=== PATIENT | female | born 1980 | race African-American/Black ===

== ENCOUNTER 2019-05-18 10:40 | Emergency (ER) | payer MEDICAID ==
[~2019-05-18] VITALS: Ht 160 cm; Wt 125.0 kg
[~2019-05-18 10:40] MED LIST: ALBU18HF2 IH; ALPR2TAB2 PO; AMLO10TA80 PO; ATEN50TA PO; BENA20TA10 PO; CHOL20004 PO; CYCL5TAB PO; FERR-63 PO; GABA-290 PO; HYDR-3933 PO; HYDR25TA PO; OMEP20TA2 PO; pilocarpine PO; plaquenil PO
[2019-05-18] MEDS ORDERED: HYDROCODONE/ACETAMINOPHEN 5/325MG TABLET PO STA (15:19)
[2019-05-18] MEDS ORDERED: AMLODIPINE 5MG TABLET PO ONE (15:30)
[2019-05-18 15:52] LABS: BASOPHILS % 0.7 % (0.0-2.0); EOSINOPHILS % 4.6 % (0.0-5.0); HEMATOCRIT. 24.6 % (36.0-48.0); HEMOGLOBIN. 7.2 g/dL (12.0-16.0); LYMPHOCYTES % 28.1 % (20.0-50.0); MEAN CORPUSCULAR HEMOGLOBIN 19.2 pg (28.0-32.0); MEAN CORPUSCULAR VOLUME 65.1 fL (81.0-99.0); MONOCYTES % 6.9 % (2.0-8.0); NEUTROPHILS % 59.7 % (40.0-76.0); PLATELET 418 x1000/uL (130-400); RED BLOOD CELL COUNT 3.77 mill/uL (4.2-5.4); RED CELL DISTRIBUTION WIDTH 17.8 % (11.6-14.6)
[2019-05-18 15:55] LABS: CHLORIDE 111 mEq/L (98-107)
[2019-05-18 16:31] LABS: PLATELET ESTIMATE SLIGHTLY INCREASED
[2019-05-18 17:08] VITALS: BP 152/79
== END 2019-05-18 18:00 | disposition home or self-care (01) ==
LOC: ER 10:40
DX: R51 Headache (principal); I16.0 Hypertensive urgency; M32.9 Systemic lupus erythematosus, unspecified; J45.909 Unspecified asthma, uncomplicated; M79.7 Fibromyalgia; I10 Essential (primary) hypertension; M19.90 Unspecified osteoarthritis, unspecified site; Z88.1 Allergy status to other antibiotic agents; Z88.6 Allergy status to analgesic agent
CPT/HCPCS: 36415; 80053; 85025; 99284

== ENCOUNTER 2023-02-07 18:52 | Emergency (ER) | payer MEDICAID, OTHER ==
[~2023-02-07] VITALS: Ht 162.6 cm; Wt 118.0 kg
[~2023-02-07 18:52] MED LIST changes: +BENA-8 PO; -BENA20TA10 PO; -OMEP20TA2 PO; +OMEP20TA23 PO
[2023-02-07 19:25] VITALS: O2SAT 98
[2023-02-07 20:09] LABS: BASOPHILS % 0.6 % (0.0-2.0); EOSINOPHILS % 1.7 % (0.0-5.0); HEMATOCRIT. 25.3 % (36.0-48.0); HEMOGLOBIN. 7.4 g/dL (12.0-16.0); LYMPHOCYTES % 18.4 % (20.0-50.0); MEAN CORPUSCULAR HEMOGLOBIN 19.3 pg (28.0-32.0); MEAN CORPUSCULAR HGB CONC 29.2 g/dL (31.0-37.0); MEAN CORPUSCULAR VOLUME 66.1 fL (81.0-99.0); MEAN PLATELET VOLUME 7.3 fl (7.4-10.4); MONOCYTES % 6.5 % (2.0-8.0); NEUTROPHILS % 72.8 % (40.0-76.0); PLATELET 320 x1000/uL (130-400); RED BLOOD CELL COUNT 3.82 mill/uL (4.2-5.4); RED CELL DISTRIBUTION WIDTH 18.8 % (11.6-14.6)
[2023-02-07 20:10] LABS: ADD RBC MORPHOLOGY YES; DIFFERENTIAL COMMENT 1
[2023-02-07 20:16] LABS: CALCIUM 8.6 mg/dL (8.5-10.1); CHLORIDE 110 mEq/L (98-107); INDEX HEMOLYSI 1 (1-3); INDEX ICTERIC 1 (1-4); INDEX LIPEMIC 1 (1-3); POTASSIUM 3.7 mEq/L (3.5-5.1); SODIUM 139 mEq/L (136-145)
[2023-02-07 20:22] LABS: ALANINE AMINOTRANSFERASE 20 IU/L (13-61); ALBUMIN 3.6 g/dL (3.4-5.0); ASPARTATE AMINOTRANSFERASE 17 IU/L (15-37); BILIRUBIN TOTAL 0.4 mg/dL (0.1-1.0); CARBON DIOXIDE 28 mEq/L (21-32); GLUCOSE 90 mg/dL (70-105); PROTEIN TOTAL 7.8 g/dL (6.0-8.3); UREA NITROGEN BLOOD 9 mg/dL (7-21)
[2023-02-07 22:41] LABS: HYPOCHROMASIA 2+; MICROCYTOSIS 3+; PLATELET ESTIMATE NORMAL
[2023-02-07 22:42] LABS: ANISOCYTOSIS 2+; OVALOCYTES 1+
[2023-02-08 05:50] VITALS: BP 148/84; PULSE 71; RESP 18; TEMP 98.8
== END 2023-02-08 06:46 | disposition home or self-care (01) ==
LOC: ER 18:52
DX: D64.9 Anemia, unspecified (principal); I12.9 Hypertensive chronic kidney disease with stage 1 through stage 4 chronic kidney disease, or unspecified chronic kidney disease; M32.9 Systemic lupus erythematosus, unspecified; N18.9 Chronic kidney disease, unspecified
CPT/HCPCS: 36415; 80053; 85025; 86850; 86870; 86900; 86920; 93005; 99285; P9016

== ENCOUNTER 2024-06-15 19:59 | Emergency (ER) | payer OTHER ==
[~2024-06-15] VITALS: Ht 160 cm; Wt 113.0 kg
[~2024-06-15 19:59] MED LIST changes: -CYCL5TAB PO; +CYCL5TAB3 PO
[2024-06-15 20:08] VITALS: BP 172/93; PULSE 93; RESP 22; O2SAT 97
[2024-06-15 21:31] VITALS: TEMP 98.2
[2024-06-15] MEDS: ACETAMINOPHEN 500MG TABLET PO ONE (21:31)
[2024-06-15] MEDS ORDERED: METH-653 MT (21:38)
[2024-06-15] MEDS ORDERED: IBUP-2030 MT (21:38)
[2024-06-15] MEDS ORDERED: LIDO700A15 TP (21:38)
== END 2024-06-15 21:45 | disposition home or self-care (01) ==
LOC: ER 19:59
DX: M54.2 Cervicalgia (principal); M54.9 Dorsalgia, unspecified; R51.9 Headache, unspecified; M25.512 Pain in left shoulder; J45.909 Unspecified asthma, uncomplicated; I10 Essential (primary) hypertension; Z79.899 Other long term (current) drug therapy; Z88.5 Allergy status to narcotic agent; V43.52XA Car driver injured in collision with other type car in traffic accident, initial encounter; Y93.89 Activity, other specified; Y92.410 Unspecified street and highway as the place of occurrence of the external cause; Y99.8 Other external cause status
CPT/HCPCS: 99283